=== PATIENT | female | born 1985 | race American Indian/Alaskan Native ===

== ENCOUNTER 2017-03-27 23:04 | Emergency (ER) | payer BC, MEDICAID, OTHER ==
[2017-03-27 23:24] VITALS: BMI 27.3
[2017-03-27 23:59] LABS: BASO # 0.02 K/mm3 (0.0-2.0); BASO % 0.2 % (0.0-3.0); EOS # 0.2 (0.0-0.7); EOS % 2.1 % (1.5-5.0); GRAN # 4.71 (1.4-6.5); GRAN % 53.9 % (50.0-68.0); HEMATOCRIT 35.8 % (36.0-48.0); LYMPH # 3.1 (1.2-3.4); LYMPH % 35.2 % (22.0-35.0); MEAN CELL VOLUME 86.5 fl (80.0-105.0); MEAN CORPUSCULAR HEMOGLOBIN 29.5 pg (25.0-35.0); MEAN CORPUSCULAR HGB CONC 34.1 g/dl (31.0-37.0); MEAN PLATELET VOLUME 9.5 fl (7.0-11.0); MONO # 0.8 (0.1-0.6); MONO % 8.6 % (1.0-6.0); RED CELL DISTRIBUTION WIDTH 12.7 % (11.5-14.5); WHITE BLOOD COUNT 8.7 10^3/ul (4.5-11.0)
--- NOTE | 2017-03-28 00:04 | ED PDOC ---
Arrival/HPI - General Chief Complaint: Abdominal Pain Time Seen by Provider: 03/27/17 23:13 Historian: Patient - History of Present Illness Narrative History of Present Illness (Text): 03/28/17 00:05 A 31 year old female presents to the emergency department complaining of abdominal pain for the past three weeks. Patient denies any nausea, vomiting, diarrhea, headache, dizziness or any other complaints at this time. Time/Duration: < month Symptom Onset: Sudden Symptom Course: Unchanged Activities at Onset: Rest Context: Home Past Medical History - Provider Review Nursing Documentation Reviewed: Yes - Infectious Disease Hx of Infectious Diseases: None - Tetanus Immunization Tetanus Immunization: Up to Date - Past Medical History Past Medical History: No Previous - Cardiac Hx Cardiac Disorders: No - Pulmonary Hx Respiratory Disorders: No - Neurological Hx Neurological Disorder: Yes (SYNCOPE 10-28-13) Hx Dizziness: Yes - HEENT Hx HEENT Disorder: No - Renal Hx Renal Disorder: No - Endocrine/Metabolic Hx Endocrine Disorders: Yes (Hypoglycemia) - Hematological/Oncological Hx Blood Disorders: No - Integumentary Hx Dermatological Disorder: No - Musculoskeletal/Rheumatological Hx Musculoskeletal Disorders: No - Gastrointestinal Hx Gastrointestinal Disorders: No - Genitourinary/Gynecological Hx Genitourinary Disorders: Yes (OVARIAN CYST) - Psychiatric Hx Depression: No Hx Substance Use: No - Past Surgical History Past Surgical History: No Previous - Surgical History Other/Comment: IUD removal 04/02/14 - Anesthesia Hx Anesthesia: Yes Hx Anesthesia Reactions: No Hx Malignant Hyperthermia: No - Suicidal Assessment Feels Threatened In Home Enviroment: No Family/Social History - Physician Review Nursing Documentation Reviewed: Yes Family/Social History: No Known Family HX Smoking Status: Never Smoked Hx Alcohol Use: No Hx Substance Use: No Hx Substance Use Treatment: No Allergies/Home Meds Allergies/Adverse Reactions: Allergies Penicillins Allergy (Verified 03/27/17 23:24) RASH Review of Systems - Physician Review All systems were reviewed & negative as marked: Yes - Review of Systems Gastrointestinal: Abdominal Pain. absent: Diarrhea, Nausea, Vomiting Neurological: absent: Headache, Dizziness Physical Exam Vital Signs Reviewed: Yes Appearance: Positive for: Well-Appearing, Non-Toxic, Comfortable Pain Distress: None Mental Status: Positive for: Alert and Oriented X 3 - Systems Exam Head: Present: Atraumatic, Normocephalic Pupils: Present: PERRL Extroacular Muscles: Present: EOMI Conjunctiva: Present: Normal Mouth: Present: Moist Mucous Membranes Neck: Present: Normal Range of Motion Respiratory/Chest: Present: Clear to Auscultation, Good Air Exchange. No: Respiratory Distress, Accessory Muscle Use Cardiovascular: Present: Regular Rate and Rhythm, Normal S1, S2. No: Murmurs Abdomen: Present: Tenderness (RUQ), Normal Bowel Sounds. No: Distention, Peritoneal Signs Back: Present: Normal Inspection Upper Extremity: Present: Normal Inspection. No: Cyanosis, Edema Lower Extremity: Present: Normal Inspection. No: Edema Neurological: Present: GCS=15, CN II-XII Intact, Speech Normal Skin: Present: Warm, Dry, Normal Color. No: Rashes Psychiatric: Present: Alert, Oriented x 3, Normal Insight, Normal Concentration Medical Decision Making ED Course and Treatment: 03/28/17 00:03 Impression: A 31 year old female with abdominal pain. Plan: -- CT abd/pelvis -- labs -- Urinalysis -- Reassess and disposition Prior Visits: Notes and results from previous visits were reviewed. Patient was last seen in the emergency department on 05/17/15 for evaluation of epigastric pain. Progress Notes: CT Abdomen and Pelvis With Intravenous Contrast FINDINGS: Lower thorax: No acute findings. ABDOMEN: Liver: Too small to characterize lesion. Gallbladder and bile ducts: No calcified stones. No ductal dilation. Pancreas: No ductal dilation. No mass. Spleen: No splenomegaly. Adrenals: No mass. Kidneys and ureters: No mass. No hydronephrosis. Stomach and bowel: No definite mural thickening. No obstruction. Appendix: Normal caliber. No inflammation. PELVIS: Bladder: Borderline bladder wall thickening, up to 5 mm. Incomplete distention, limiting evaluation. Reproductive: Retroverted uterus. IUD. 3.0 x 2.5 x 2.7 cm hypodense lesion within RIGHT ovary. ABDOMEN and PELVIS: Intraperitoneal space: No significant fluid collection. No free air. Bones/joints: No acute fracture. Soft tissues: Mild focal eventration midline anterior abdominal wall. Vasculature: Unremarkable. No aneurysm. Lymph nodes: No pathologically enlarged lymph nodes. IMPRESSION: 1. Probable RIGHT ovarian cyst. Consider ultrasound. 2. Mild cystitis vs underdistention. Correlate with urinalysis. 3. Incidental/non-acute findings are described above. Dictated and Authenticated by: Julián Smith MD 03/28/2017 1:51 AM Eastern Time ([place] & [place]) - Lab Interpretations Lab Results: 03/27/17 23:40 03/27/17 23:40 Lab Results 03/28/17 00:00: Urine Color Yellow, Urine Appearance Sl cloudy, Urine pH 7.0, Ur Specific [place] 1.020, Urine Protein Negative, Urine Glucose (UA) Negative, Urine Ketones Negative, Urine Blood Negative, Urine Nitrate Negative, Urine Bilirubin Negative, Urine Urobilinogen 1.0 H, Ur Leukocyte Esterase Negative, Urine HCG, Qual Negative 03/27/17 23:40: Sodium 140, Potassium 4.0, Chloride 102, Carbon Dioxide 31, Anion Gap 11, BUN 10, Creatinine 0.8, Est GFR ( Amer) > 60, Est GFR (Non- Af Amer) > 60, Random Glucose 103, Calcium 9.6, Total Bilirubin 0.3, AST 28, ALT 34, Alkaline Phosphatase 78, Total Protein 6.9, Albumin 4.1, Globulin 2.8, Albumin/Globulin Ratio 1.5, Lipase 142 03/27/17 23:40: WBC 8.7 D, RBC 4.14, Hgb 12.2, Hct 35.8 L, MCV 86.5, MCH 29.5, MCHC 34.1, RDW 12.7, Plt Count 276, MPV 9.5, Gran % 53.9, Lymph % (Auto) 35.2 H , [place] % (Auto) 8.6 H, Eos % (Auto) 2.1, Baso % (Auto) 0.2, Gran # 4.71, Lymph # 3.1, [place] # 0.8 H, Eos # 0.2, Baso # 0.02 I have reviewed the lab results: Yes - RAD Interpretation Radiology Orders: 03/28/17 00:44 ABD & PELVIS IV CONTRAST ONLY [CT] Stat - Medication Orders Current Medication Orders: Discontinued Medications Pantoprazole Sodium (Protonix Inj) 40 mg IVP ONCE STA Stop: 03/28/17 00:19 Last Admin: 03/28/17 00:36 Dose: 40 mg IVP Administration Document 03/28/17 00:36 RD (Rec: 03/28/17 00:36 RD [id number]) Charges for Administration # of IVP Administrations 1 - Scribe Statement The provider has reviewed the documentation as recorded by the Radhikaibe Debora Sampson Provider Scribe Attestation: All medical record entries made by the Scribe were at my direction and personally dictated by me. I have reviewed the chart and agree that the record accurately reflects my personal performance of the history, physical exam, medical decision making, and the department course for this patient. I have also personally directed, reviewed, and agree with the discharge instructions and disposition. Disposition/Present on Arrival - Present on Arrival Any Indicators Present on Arrival: No History of DVT/PE: No History of Uncontrolled Diabetes: No Urinary Catheter: No History of Decub. Ulcer: No History Surgical Site Infection Following: None - Disposition Have Diagnosis and Disposition been Completed?: Yes Diagnosis: Abdominal pain Disposition: HOME/ ROUTINE Disposition Time: 02:40 Condition: GOOD Discharge Instructions (ExitCare): Acute Abdominal Pain (ED) Prescriptions: Pantoprazole Sodium [Protonix] 40 mg PO DAILY #14 ect Forms: [employer] (Italian)
[2017-03-28 00:10] LABS: ALB/GLOB RATIO 1.5 (1.1-1.8); ALKALINE PHOSPHATASE 78 U/L (38-126); ALT/SGPT 34 U/L (7-56); AST/SGOT 28 U/L (14-36); BILIRUBIN,TOTAL 0.3 mg/dL (0.2-1.3); BLOOD UREA NITROGEN 10 mg/dL (7-21); CALCIUM 9.6 mg/dL (8.4-10.5); CARBON DIOXIDE 31 mmol/L (21-33); CHLORIDE 102 mmol/L (98-107); GFR AFRICAN-AMERICAN > 60; GLUCOSE,RANDOM 103 mg/dL (70-110); LIPASE 142 U/L (23-300); SODIUM 140 mmol/L (132-148); TOTAL PROTEIN 6.9 g/dL (5.8-8.3)
[2017-03-28 00:15] LABS: URINE BILIRUBIN NEGATIVE (NEGATIVE); URINE BLOOD NEGATIVE (NEGATIVE); URINE GLUCOSE (UA) NEGATIVE (NEGATIVE); URINE KETONE NEGATIVE (NEGATIVE); URINE LEUKOCYTE ESTERASE NEGATIVE Leu/uL (NEGATIVE); URINE PROTEIN NEGATIVE mg/dL (<30 mg/dL)
[2017-03-28 00:17] LABS: URINE APPEARANCE SL CLOUDY (CLEAR); URINE COLOR YELLOW (YELLOW)
[2017-03-28] MEDS ORDERED: Iohexol 350 MG/100 ML VIAL ONE (01:06)
--- NOTE | 2017-03-28 01:51 | CT ---
EXAM: CT Abdomen and Pelvis With Intravenous Contrast CLINICAL HISTORY: 31 years old, female; Pain; Abdominal pain; Generalized; Prior surgery; Surgery type: Surgical removal of iud; Additional info: Abd pain TECHNIQUE: Axial computed tomography images of the abdomen and pelvis with intravenous contrast. All CT scans at this facility use one or more dose reduction techniques, viz.: automated exposure control; ma/kV adjustment per patient size (including targeted exams where dose is matched to indication; i.e. head); or iterative reconstruction technique. Coronal and sagittal reformatted images were created and reviewed. CONTRAST: 100 mL of OMNI 350 administered intravenously. COMPARISON: No relevant prior studies available. FINDINGS: Lower thorax: No acute findings. ABDOMEN: Liver: Too small to characterize lesion. Gallbladder and bile ducts: No calcified stones. No ductal dilation. Pancreas: No ductal dilation. No mass. Spleen: No splenomegaly. Adrenals: No mass. Kidneys and ureters: No mass. No hydronephrosis. Stomach and bowel: No definite mural thickening. No obstruction. Appendix: Normal caliber. No inflammation. PELVIS: Bladder: Borderline bladder wall thickening, up to 5 mm. Incomplete distention, limiting evaluation. Reproductive: Retroverted uterus. IUD. 3.0 x 2.5 x 2.7 cm hypodense lesion within RIGHT ovary. ABDOMEN and PELVIS: Intraperitoneal space: No significant fluid collection. No free air. Bones/joints: No acute fracture. Soft tissues: Mild focal eventration midline anterior abdominal wall. Vasculature: Unremarkable. No aneurysm. Lymph nodes: No pathologically enlarged lymph nodes. IMPRESSION: 1. Probable RIGHT ovarian cyst. Consider ultrasound. 2. Mild cystitis vs underdistention. Correlate with urinalysis. 3. Incidental/non-acute findings are described above.
--- NOTE | 2017-03-28 08:50 | CARD ---
APPROVED REPORT EKG Measurement Heart [id number] <Conclusion> Normal sinus rhythm LVH by voltage Normal ECG No change
== END 2017-03-28 02:38 | disposition home or self-care (01) ==
LOC: ED 23:04
DX: R10.9 Unspecified abdominal pain (principal)
CPT/HCPCS: 74177; 80053; 81003; 83690; 84703; 85025; 93005; 96374; 99283; C9113; Q9967

== ENCOUNTER 2017-08-21 23:08 | Emergency (ER) | payer BC ==
[2017-08-21 23:08] VITALS: BMI 27.3
[2017-08-21 23:17] VITALS: BP 135/74; PULSE 84; RESP 16; TEMP 98.3; O2SAT 100
--- NOTE | 2017-08-21 23:31 | ED PDOC ---
Arrival/HPI - General Chief Complaint: Abdominal Pain Time Seen by Provider: 08/21/17 23:19 Historian: Patient - History of Present Illness Narrative History of Present Illness (Text): 08/21/17 23:30 A 32 year old female, diagnosed with right ovarian cyst, on control and Prilosec , presents to the emergency department complaining of 1 week duration, constant, right lower quadrant abdominal pain. The patient states that she has been experiencing discomfort for several months, but her symptoms have worsened this week. The patient denies fevers, chills, headache, dizziness, chest pain, shortness of breath, dyspnea on exertion, cough, nausea, vomiting, diarrhea, back pain, neck pain, urinary/bowel changes, dysuria, hematuria or any other complaint. PMD: Dr. Munson Time/Duration: 1 week Symptom Onset: Gradual Symptom Course: Worsening Activities at Onset: Rest, Light Context: Home Past Medical History - Provider Review Nursing Documentation Reviewed: Yes - Infectious Disease Hx of Infectious Diseases: None - Tetanus Immunization Tetanus Immunization: Up to Date - Past Medical History Past Medical History: No Previous - Cardiac Hx Cardiac Disorders: No - Pulmonary Hx Respiratory Disorders: No - Neurological Hx Neurological Disorder: Yes (SYNCOPE 5-3-14) Hx Dizziness: Yes - HEENT Hx HEENT Disorder: No - Renal Hx Renal Disorder: No - Endocrine/Metabolic Hx Endocrine Disorders: Yes (Hypoglycemia) - Hematological/Oncological Hx Blood Disorders: No - Integumentary Hx Dermatological Disorder: No - Musculoskeletal/Rheumatological Hx Musculoskeletal Disorders: No - Gastrointestinal Hx Gastrointestinal Disorders: No - Genitourinary/Gynecological Hx Genitourinary Disorders: Yes (OVARIAN CYST) - Psychiatric Hx Depression: No Hx Substance Use: No - Past Surgical History Past Surgical History: No Previous - Surgical History Other/Comment: IUD removal 04/02/14 - Anesthesia Hx Anesthesia: Yes Hx Anesthesia Reactions: No Hx Malignant Hyperthermia: No - Suicidal Assessment Feels Threatened In Home Enviroment: No Family/Social History - Physician Review Nursing Documentation Reviewed: Yes Family/Social History: No Known Family HX Smoking Status: Never Smoked Hx Alcohol Use: No Hx Substance Use: No Hx Substance Use Treatment: No Allergies/Home Meds Allergies/Adverse Reactions: Allergies Penicillins Allergy (Verified 03/27/17 23:24) RASH Home Medications: Home Meds Medication Instructions Recorded Confirmed Norgestimate-Ethinyl Estradiol 1 tab PO DAILY 08/21/17 08/21/17 [Ortho Tri-Cyclen 28 Tablet] Omeprazole Magnesium [Prilosec Otc] 20 mg PO DAILY 08/21/17 08/21/17 Review of Systems - Physician Review All systems were reviewed & negative as marked: Yes - Review of Systems Constitutional: absent: Fevers, Night Sweats Respiratory: absent: SOB, Cough Cardiovascular: absent: Chest Pain, [place] Gastrointestinal: Abdominal Pain (Right lower quadrant abdominal pain.). absent : Stool Changes, Diarrhea, Nausea, Vomiting Genitourinary Female: absent: Dysuria, Hematuria, Urine Output Changes Musculoskeletal: absent: Back Pain, Neck Pain Neurological: absent: Headache, Dizziness Physical Exam Vital Signs Reviewed: Yes Vital Signs Temp Pulse Resp BP Pulse Ox 08/21/17 23:15 98.3 F 84 16 135/74 100 Temperature: Afebrile Blood Pressure: Normal Pulse: Regular Respiratory Rate: Normal Appearance: Positive for: Well-Appearing, Non-Toxic, Comfortable Pain Distress: None Mental Status: Positive for: Alert and Oriented X 3 - Systems Exam Head: Present: Atraumatic, Normocephalic Pupils: Present: PERRL Extroacular Muscles: Present: EOMI Conjunctiva: Present: Normal Mouth: Present: Moist Mucous Membranes Neck: Present: Normal Range of Motion Respiratory/Chest: Present: Clear to Auscultation, Good Air Exchange. No: Respiratory Distress, Accessory Muscle Use Cardiovascular: Present: Regular Rate and Rhythm, Normal S1, S2. No: Murmurs Abdomen: Present: Normal Bowel Sounds. No: Tenderness, Distention, Peritoneal Signs Back: Present: Normal Inspection Upper Extremity: Present: Normal Inspection. No: Cyanosis, Edema Lower Extremity: Present: Normal Inspection. No: Edema Neurological: Present: GCS=15, CN II-XII Intact, Speech Normal Skin: Present: Warm, Dry, Normal Color. No: Rashes Psychiatric: Present: Alert, Oriented x 3, Normal Insight, Normal Concentration Medical Decision Making ED Course and Treatment: 08/21/17 23:35 Impression: A 32 year old female presents to the emergency department complaining of right lower quadrant abdominal pain. Plan: -- Labs -- Urinalysis -- Toradol -- Reassess and disposition Progress Notes: - Lab Interpretations Lab Results: 08/21/17 23:50 08/21/17 23:50 Lab Results 08/21/17 23:50: Sodium 141, Potassium 3.9, Chloride 103, Carbon Dioxide 26, Anion Gap 15, BUN 11, Creatinine 0.8, Est GFR ( Amer) > 60, Est GFR (Non- Af Amer) > 60, Random Glucose 106, Calcium 9.9, Total Bilirubin 0.4, AST 29, ALT 37, Alkaline Phosphatase 86, Total Protein 7.3, Albumin 4.1, Globulin 3.2, Albumin/Globulin Ratio 1.3 08/21/17 23:50: Urine Color Yellow, Urine Appearance Sl cloudy, Urine pH 5.5, Ur Specific [place] >= 1.030, Urine Protein Trace H, Urine Glucose (UA) Negative , Urine Ketones Negative, Urine Blood Moderate H, Urine Nitrate Negative, Urine Bilirubin Small H, Urine Urobilinogen 0.2, Ur Leukocyte Esterase Negative, Urine RBC 1 - 3, Urine WBC 0 - 2, Ur Epithelial Cells 3 - 4, Urine Bacteria Few , Urine HCG, Qual Negative 08/21/17 23:50: WBC 6.6 D, RBC 4.04, Hgb 12.0, Hct 35.1 L, MCV 86.9, MCH 29.7, MCHC 34.2, RDW 12.9, Plt Count 251, MPV 9.7, Gran % 57.3, Lymph % (Auto) 33.8, [place] % (Auto) 7.5 H, Eos % (Auto) 1.2 L, Baso % (Auto) 0.2, Gran # 3.76, Lymph # (Auto) 2.2, [place] # (Auto) 0.5, Eos # (Auto) 0.1, Baso # (Auto) 0.01 I have reviewed the lab results: Yes - Medication Orders Current Medication Orders: Discontinued Medications Ketorolac Tromethamine (Toradol) 60 mg IM STAT STA Stop: 08/21/17 23:30 Last Admin: 08/21/17 23:55 Dose: 60 mg [facility] Pain Assessment Document 08/21/17 23:55 GALILEA (Rec: 08/21/17 23:57 GALILEA [id number]) Pain Reassessment Is this a pain reassessment? Yes Sleep Is patient sleeping during reassessment? No Presence of Pain Presence of Pain Yes Pain Scale Used Pain Scale Used Numeric Location Left, Right or Bilateral Right Upper or Lower Lower Pain Location Body Site Abdomen Description Description Radiating Pain Behavior Rubbing Site Aggravating Factors Contant IM Administration Charges Document 08/21/17 23:55 GALILEA (Rec: 08/21/17 23:57 RG [id number]) Injection Site MAR Injection Site Left Gluteus Medius Charges for Administration # of IM Administrations 1 - Scribe Statement The provider has reviewed the documentation as recorded by the Scribe Jasmine Da Silva Provider Scribe Attestation: All medical record entries made by the Scribe were at my direction and personally dictated by me. I have reviewed the chart and agree that the record accurately reflects my personal performance of the history, physical exam, medical decision making, and the department course for this patient. I have also personally directed, reviewed, and agree with the discharge instructions and disposition. Disposition/Present on Arrival - Present on Arrival Any Indicators Present on Arrival: No History of DVT/PE: No History of Uncontrolled Diabetes: No Urinary Catheter: No History of Decub. Ulcer: No History Surgical Site Infection Following: None - Disposition Have Diagnosis and Disposition been Completed?: Yes Diagnosis: Right ovarian cyst Disposition: HOME/ ROUTINE Disposition Time: 12:40 Patient Plan: Discharge Condition: STABLE Discharge Instructions (ExitCare): Ovarian Cysts Prescriptions: Naproxen [Naprosyn] 500 mg PO BID PRN #14 tablet PRN Reason: Pain, Moderate (4-7) Forms: [employer] ([place])
[2017-08-21 23:58] LABS: BASO # 0.01 K/mm3 (0.0-2.0); BASO % 0.2 % (0.0-3.0); EOS # 0.1 (0.0-0.7); EOS % 1.2 % (1.5-5.0); GRAN # 3.76 (1.4-6.5); GRAN % 57.3 % (50.0-68.0); LYMPH # 2.2 (1.2-3.4); LYMPH % 33.8 % (22.0-35.0); MEAN CELL VOLUME 86.9 fl (80.0-105.0); MEAN CORPUSCULAR HEMOGLOBIN 29.7 pg (25.0-35.0); MEAN CORPUSCULAR HGB CONC 34.2 g/dl (31.0-37.0); MEAN PLATELET VOLUME 9.7 fl (7.0-11.0); MONO # 0.5 (0.1-0.6); MONO % 7.5 % (1.0-6.0); RBC 4.04 10^6/uL (3.5-6.1); RED CELL DISTRIBUTION WIDTH 12.9 % (11.5-14.5); WHITE BLOOD COUNT 6.6 10^3/ul (4.5-11.0)
[2017-08-22] LABS: PH,URINE 5.5 (4.7-8.0); URINE BILIRUBIN SMALL (NEGATIVE); URINE BLOOD MODERATE (NEGATIVE); URINE GLUCOSE (UA) NEGATIVE (NEGATIVE); URINE LEUKOCYTE ESTERASE NEGATIVE Leu/uL (NEGATIVE); URINE NITRATE NEGATIVE (NEGATIVE); URINE PROTEIN TRACE mg/dL (<30 mg/dL); URINE UROBILINOGEN 0.2 E.U./dL (<1 E.U./dL)
[2017-08-22 00:06] LABS: HCG,QUALITATIVE URINE NEGATIVE (NEGATIVE); URINE APPEARANCE SL CLOUDY (CLEAR); URINE COLOR YELLOW (YELLOW)
[2017-08-22 00:13] LABS: ALB/GLOB RATIO 1.3 (1.1-1.8)
[2017-08-22 00:15] LABS: ALBUMIN 4.1 g/dL (3.0-4.8); ALT/SGPT 37 U/L (7-56); AST/SGOT 29 U/L (14-36); BLOOD UREA NITROGEN 11 mg/dL (7-21); CALCIUM 9.9 mg/dL (8.4-10.5); GFR AFRICAN-AMERICAN > 60; GFR NON-AFRICAN AMERICAN > 60
[2017-08-22 00:16] LABS: URINE WBC 0 - 2 /hpf (0-6)
[2017-08-22 00:17] LABS: URINE BACTERIA FEW (NEG)
== END 2017-08-22 01:07 | disposition home or self-care (01) ==
LOC: ED 23:08
DX: N83.201 Unspecified ovarian cyst, right side (principal)
CPT/HCPCS: 80053; 81001; 84703; 85025; 96372; 99284; J1885

== ENCOUNTER 2018-09-06 19:32 | Emergency (ER) | payer BC ==
[2018-09-06 19:33] VITALS: BMI 27.3
[2018-09-06 19:43] VITALS: RESP 18; TEMP 98.3; O2SAT 100
[2018-09-06] MEDS ORDERED: Sodium Chloride 0.9% 1,000 ML IV STA ×2 (20:16→22:03)
[2018-09-06 21:03] LABS: URINE BILIRUBIN NEGATIVE (NEGATIVE); URINE BLOOD SMALL (NEGATIVE); URINE GLUCOSE (UA) NEGATIVE (NEGATIVE); URINE LEUKOCYTE ESTERASE TRACE Leu/uL (NEGATIVE); URINE PROTEIN NEGATIVE mg/dL (<30 mg/dL); URINE UROBILINOGEN 0.2 E.U./dL (<1 E.U./dL)
[2018-09-06 21:04] LABS: URINE APPEARANCE CLEAR (CLEAR); URINE COLOR STRAW (YELLOW)
[2018-09-06 21:06] LABS: HEMOGLOBIN 11.4 g/dL (12.0-16.0); MEAN CELL VOLUME 85.7 fl (80.0-105.0); MEAN CORPUSCULAR HEMOGLOBIN 28.6 pg (25.0-35.0); RBC 3.98 10^6/uL (3.5-6.1); WHITE BLOOD COUNT 7.5 10^3/uL (4.5-11.0)
[2018-09-06 21:07] LABS: ALB/GLOB RATIO 1.4 (1.1-1.8); ALBUMIN 4.6 g/dL (3.0-4.8); ALT/SGPT 12 U/L (7-56); AST/SGOT 18 U/L (14-36); BASO # 0.02 K/mm3 (0.0-2.0); BASO % 0.3 % (0.0-3.0); BLOOD UREA NITROGEN 19 mg/dL (7-21); CALCIUM 9.6 mg/dL (8.4-10.5); EOS # 0.1 (0.0-0.7); EOS % 1.9 % (1.5-5.0); GFR NON-AFRICAN AMERICAN > 60; LIPASE 170 U/L (23-300); LYMPH # 2.8 (1.2-3.4); LYMPH % 36.9 % (22.0-35.0); MEAN CORPUSCULAR HGB CONC 33.4 g/dl (31.0-37.0); MONO # 0.6 (0.1-0.6); MONO % 8.1 % (1.0-6.0); RED CELL DISTRIBUTION WIDTH 13.3 % (11.5-14.5)
[2018-09-06 21:08] LABS: URINE BACTERIA TRACE /hpf; URINE RBC 15 - 20 /hpf (0-2)
--- NOTE | 2018-09-06 21:47 | ED PDOC ---
Arrival/HPI - General Chief Complaint: Abdominal Pain Time Seen by Provider: 09/06/18 19:39 Historian: Patient - History of Present Illness Narrative History of Present Illness (Text): 09/06/18 21:47 33yr old female presenting today with right lower quadrant pain times 5 days. Patient also with a 3-day history of vaginal bleeding which has improved today. Patient states she did a home test and found out that she was positive for . Patient states her LMP was August 18. Patient states she has been having increasing cramping in the right lower quadrant of the abdomen. No nausea vomiting or diarrhea. No chest pain or shortness of breath. No other complaints Past Medical History - Provider Review Nursing Documentation Reviewed: Yes - Travel History Have you recently traveled outside [place] w/in the past 3 mons?: No - Infectious Disease Hx of Infectious Diseases: None - Tetanus Immunization Tetanus Immunization: Up to Date - Past Medical History Past Medical History: No Previous - Cardiac Hx Cardiac Disorders: No - Pulmonary Hx Respiratory Disorders: No - Neurological Hx Neurological Disorder: Yes (SYNCOPE 5-3-14) Hx Dizziness: Yes - HEENT Hx HEENT Disorder: No - Renal Hx Renal Disorder: No - Endocrine/Metabolic Hx Endocrine Disorders: Yes (Hypoglycemia) - Hematological/Oncological Hx Blood Disorders: No - Integumentary Hx Dermatological Disorder: No - Musculoskeletal/Rheumatological Hx Musculoskeletal Disorders: No - Gastrointestinal Hx Gastrointestinal Disorders: No - Genitourinary/Gynecological Hx Genitourinary Disorders: Yes (OVARIAN CYST) - Psychiatric Hx Depression: No Hx Substance Use: No - Past Surgical History Past Surgical History: No Previous - Surgical History Other/Comment: IUD removal 04/02/14 - Anesthesia Hx Anesthesia: Yes Hx Anesthesia Reactions: No Hx Malignant Hyperthermia: No - Suicidal Assessment Feels Threatened In Home Enviroment: No Family/Social History - Physician Review Nursing Documentation Reviewed: Yes Family/Social History: Unknown Family HX Smoking Status: Never Smoked Hx Alcohol Use: No Hx Substance Use: No Hx Substance Use Treatment: No Allergies/Home Meds Allergies/Adverse Reactions: Allergies Penicillins Allergy (Verified 09/06/18 19:43) RASH Home Medications: Home Meds Medication Instructions Recorded Confirmed Montelukast [Singulair] 10 mg PO DAILY 09/06/18 09/06/18 Review of Systems - Review of Systems Constitutional: absent: Fatigue, Fevers Respiratory: absent: SOB, Cough Cardiovascular: absent: Chest Pain, Palpitations Gastrointestinal: Abdominal Pain. absent: Constipation, Diarrhea, Nausea, Vomiting Genitourinary Female: Vaginal Bleeding. absent: Dysuria, Frequency, Hematuria Musculoskeletal: absent: Arthralgias, Back Pain, Neck Pain Skin: absent: Rash, Pruritis Neurological: absent: Headache, Dizziness Psychiatric: absent: Anxiety, Depression Physical Exam Vital Signs Reviewed: Yes Vital Signs Temp Pulse Resp BP Pulse Ox 09/06/18 21:12 98.3 F 84 18 133/89 100 09/06/18 19:42 98.3 F 80 18 123/82 100 Temperature: Afebrile Blood Pressure: Normal Pulse: Regular Respiratory Rate: Normal Appearance: Positive for: Well-Appearing, Non-Toxic, Comfortable Pain Distress: None Mental Status: Positive for: Alert and Oriented X 3 - Systems Exam Head: Present: Atraumatic Mouth: Present: Moist Mucous Membranes Neck: Present: Normal Range of Motion Respiratory/Chest: Present: Clear to Auscultation, Good Air Exchange. No: Respiratory Distress, Accessory Muscle Use Cardiovascular: Present: Regular Rate and Rhythm, Normal S1, S2. No: Murmurs Abdomen: Present: Tenderness (+ rlq tenderness). No: Distention, Peritoneal Signs, Rebound, Guarding Upper Extremity: Present: Normal ROM Lower Extremity: Present: Normal ROM Neurological: Present: GCS=15, Speech Normal Skin: Present: Warm, Dry, Normal Color. No: Rashes Psychiatric: Present: Alert, Oriented x 3 Medical Decision Making ED Course and Treatment: 09/06/18 22:02 33-year-old female with right lower quadrant abdominal pain with a positive test at home Patient immediately went over for ultrasound to find an right-sided ectopic with a heartbeat CBC within normal limits CMP within normal limits Beta hCG 11,638 Type and screen: O+ US; Findings Uterus Uterus measures 7.72 x 4.62 x 5.02 cm. Echogenic material is seen in the endometrium. The endometrium measures 0.62 cm. No pole or heart beat is seen. Cervix Long and closed measuring 3.63 cm. No cervical abnormality seen. Right Ovary Measures 1.75 x 1.2 cm. Cystic leision with peripheral flow measures 0.84 x 0.61 x 0.84 cm. CRL measures 0.07 cm. Yolk sac measures 0.39 cm Heart rate: 78.34 bpm. Left Ovary Measures 2.2 x 1.42 x 1.87 cm. No mass. Normal flow. Free Fluid Yes. Moderate. Other Findings None. Impression 1. Cystic lesion in the right ovary with peripheral flow and apparent pole/heart beat, suspicious for ectopic . 2. Echogenic material is seen in the endometrium consistent with blood clots. 3. Moderate fluid is seen in the cul-de-sac. 4. Correlation with serial beta hCG and short term follow-up with ultrasound as clinically warranted. Electronically signed on Sep 06, 2018 9:38:49 PM EDT by: Jose Salgado M.D., [facility]UZ[facility] Certified By [facility] [facility] Trained MRI and CT Specialist case discussed with dr. Molina; discussed case in depth; advised transfer patient for OR. all results discussed with patient in depth pt reassessment; pt remains stable. resting comfortably. impression; ectopic transfer [facility] 09/06/18 22:19 - Lab Interpretations Lab Results: Total Bilirubin 0.2 mg/dL (0.2-1.3) 09/06/18 20:30 AST 18 U/L (14-36) 09/06/18 20:30 ALT 12 U/L (7-56) 09/06/18 20:30 Alkaline Phosphatase 78 U/L (38-126) 09/06/18 20:30 Total Protein 8.0 g/dL (5.8-8.3) 09/06/18 20:30 Albumin 4.6 g/dL (3.0-4.8) 09/06/18 20:30 Globulin 3.3 gm/dL 09/06/18 20:30 Albumin/Globulin Ratio 1.4 (1.1-1.8) 09/06/18 20:30 Lipase 170 U/L (23-300) 09/06/18 20:30 Urine Color Straw (YELLOW) 09/06/18 20:30 Urine Appearance Clear (CLEAR) 09/06/18 20:30 Urine pH 6.0 (4.7-8.0) 09/06/18 20:30 Ur Specific [place] <= 1.005 (1.005-1.035) 09/06/18 20:30 Urine Protein Negative mg/dL (<30 mg/dL) 09/06/18 20:30 Urine Glucose (UA) Negative mg/dL (NEGATIVE) 09/06/18 20:30 Urine Ketones Negative mg/dL (NEGATIVE) 09/06/18 20:30 Urine Blood Small (NEGATIVE) H 09/06/18 20:30 Urine Nitrate Negative (NEGATIVE) 09/06/18 20:30 Urine Bilirubin Negative (NEGATIVE) 09/06/18 20:30 Urine Urobilinogen 0.2 E.U./dL (<1 E.U./dL) 09/06/18 20:30 Ur Leukocyte Esterase Trace Jase/uL (NEGATIVE) H 09/06/18 20:30 Urine RBC 15 - 20 /hpf (0-2) H 09/06/18 20:30 Urine WBC 2 - 5 /hpf (0-6) 09/06/18 20:30 Ur Epithelial Cells 6 - 8 /hpf (0-5) H 09/06/18 20:30 Urine Bacteria Trace /hpf (NONE) 09/06/18 20:30 Beta HCG, Quant 68882.00 mIU/mL (0-6.15) H 09/06/18 20:30 - RAD Interpretation Radiology Orders: 09/06/18 19:44 OB TRANSVAGINAL [US] Stat - Medication Orders Current Medication Orders: Discontinued Medications Sodium Chloride (Sodium Chloride 0.9%) 1,000 mls @ 999 mls/hr IV .Q1H1M STA Stop: 09/06/18 21:16 Last Admin: 09/06/18 20:35 Dose: 999 mls/hr eMAR Start Stop Document 09/06/18 20:35 CNR (Rec: 09/06/18 20:35 CNR [id number]) Intravenous Solution Start Date 09/06/18 Start Time 20:35 End Date 09/06/18 End time 21:35 Total Infusion Time 60 Disposition/Present on Arrival - Present on Arrival Any Indicators Present on Arrival: No History of DVT/PE: No History of Uncontrolled Diabetes: No Urinary Catheter: No History of Decub. Ulcer: No History Surgical Site Infection Following: None - Disposition Have Diagnosis and Disposition been Completed?: Yes Diagnosis: Ectopic Disposition: Transfer [facility] Disposition Time: 21:39 Patient Plan: Transfer To Patient Problems: Current Active Problems Problem Status Onset Ectopic Acute Condition: GUARDED Forms: Guide (Austrian)
[2018-09-06 22:06] VITALS: BP 125/76; PULSE 89
[2018-09-06 22:53] LABS: INR 1.15; PARTIAL THROMBOPLASTIN TIME 36.2 Seconds (26.9-38.3); PROTHROMBIN TIME 12.8 SECONDS (9.4-12.5)
--- NOTE | 2018-09-07 08:57 | US ---
Date of service: 09/06/2018 PROCEDURE: Obstetrical ultrasound, limited HISTORY: pain/ Beta HCG results: Approximately 04165 units. COMPARISON: None TECHNIQUE: Standard protocol for this study/examination. FINDINGS: Evidence of right ectopic gestation. Visible pole, calculated cardiac rate 78 beats per minute. Well-formed gestational sac documented, yolk sac noted. The findings are indicative of right ectopic gestation. Uterus measures 4.6 x 5 x 7.7 cm. Endometrial echo complex thickness 6.2 mm. Fluid, debris and presumably clots identified within the endometrial canal. Left ovary measures 1.4 x 2.2 cm. Multiple subcentimeter follicles. Complex fluid identified in the [id number]/blood clots, debris likely. IMPRESSION: 1. Unilateral, right ectopic gestation. 2. Fluid/debris identified in the endometrial canal. 3. Complex fluid, small volume is visualized in the cul-de-sac/pelvis. Communication of results: I discussed findings directly with Dr. Jose Molina at 08:49.
== END 2018-09-06 22:23 | disposition short-term general hospital (02) ==
LOC: ED 19:32
DX: O00.90 Unspecified ectopic pregnancy without intrauterine pregnancy (principal)
CPT/HCPCS: 76817; 80053; 81001; 81025; 83690; 84702; 85025; 85610; 85730; 86850; 86900; 87086; 96360; 99284; J7030